=== PATIENT | male | born 1960 | race Caucasian/White ===

== ENCOUNTER 2021-06-26 06:32 | Day surgery (SDC) | payer MEDICARE, OTHER ==
[~2021-06-26] VITALS: Ht 177.8 cm; Wt 95.5 kg
[2021-06-26 07:00] VITALS: BP 175/107
[2021-06-26] MEDS ORDERED: normal saline 1000ml 1,000 ML IV PRN (07:00)
[2021-06-26] MEDS ORDERED: AMLO2.5T2 PO (07:15)
[2021-06-26] MEDS ORDERED: LISI20TA28 PO (07:15)
[2021-06-26] MEDS ORDERED: PANT-47 PO (07:15)
[2021-06-26] MEDS ORDERED: DOXA2TAB46 PO (07:15)
[2021-06-26] MEDS ORDERED: LEVO50TA PO (07:15)
[2021-06-26 07:29] LABS: BASOPHILS # (AUTO) 0.1 X10'3 (0-0.2); BASOPHILS % (AUTO) 1.3 % (0-1); EOSINOPHILS % (AUTO) 12.9 % (0-6); HEMATOCRIT 38.3 % (42.0-52.0); HEMOGLOBIN 13.2 g/dl (14.0-17.9); LYMPHOCYTES # (AUTO) 1.2 X10'3 (1.1-4.8); LYMPHOCYTES % (AUTO) 15.8 % (21-51); MEAN CORPUSCULAR HEMOGLOBIN 35.1 PG (27.0-31.0); MEAN CORPUSCULAR HGB CONC 34.4 g/dL (33.0-36.5); MEAN CORPUSCULAR VOLUME 101.9 FL (78-98); MEAN PLATELET VOLUME 8.4 FL (7.4-10.4); MONOCYTES # (AUTO) 0.7 X10'3 (0-0.9); MONOCYTES % (AUTO) 9.5 % (2-12); NEUTROPHILS # (AUTO) 4.5 X10'3 (1.8-7.7); NEUTROPHILS % (AUTO) 60.5 % (42-75); PLATELET COUNT 306 X10'3 (140-440); RED BLOOD COUNT 3.76 X10'6 (4.70-6.10); RED CELL DISTRIBUTION WIDTH 14.8 % (11.5-14.5); WHITE BLOOD COUNT 7.4 X10'3 (4.5-11.0)
[2021-06-26 07:37] LABS: ALBUMIN 4.6 G/DL (3.4-5.0); ANION GAP 14 (8-16); BLOOD UREA NITROGEN 36 MG/DL (7-18); BUN/CREATININE RATIO 5.1 (5.4-32.0); CALCIUM 9.9 MG/DL (8.5-10.1); CHLORIDE 98 MMOL/L (99-107); CREATININE 7.04 MG/DL (0.60-1.10); GLUCOSE 160 MG/DL (70-104); POTASSIUM 3.1 MMOL/L (3.5-5.1); SODIUM 142 MMOL/L (135-145); eGFR 8 ML/MIN
[2021-06-26] MEDS ORDERED: LIDOcaine 1%/PF 5ML 10 MG/ML VIAL ONE (08:32)
[2021-06-26] MEDS ORDERED: iohexol 300mg/ml 100ml inj. ONE (08:33)
[2021-06-26] MEDS ORDERED: fentaNYL/PF 50MCG/1 ML 2ML syringe ONE ×2 (08:33→08:36)
[2021-06-26] MEDS ORDERED: midazolam 1 mg/ML 2ml injection ONE ×2 (08:33→08:36)
[2021-06-26] MEDS ORDERED: heparin 1,000 UNITS/NS 500ml 500 ML ONE (08:33)
[2021-06-26] MEDS ORDERED: heparin 1,000unit/ml 10ml vial 10 ML ONE (09:21)
[2021-06-26] MEDS ORDERED: hydrALAZINE 20mg/ml inj. IV ONE (09:24)
[2021-06-26 09:50] VITALS: BP 170/92
[2021-06-26 10:05] VITALS: BP 157/102
[2021-06-26 10:20] VITALS: BP 176/92
[2021-06-26 10:35] VITALS: BP 169/94
[2021-06-26 10:50] VITALS: BP 176/97
== END 2021-06-26 11:00 | disposition home or self-care (01) ==
LOC: SSTAY O 06:32
PROVIDERS: ATTEND Radiology Vascular & Interventional Radiology
DX: T82.858A Stenosis of other vascular prosthetic devices, implants and grafts, initial encounter (principal); I12.0 Hypertensive chronic kidney disease with stage 5 chronic kidney disease or end stage renal disease; N18.6 End stage renal disease; E03.9 Hypothyroidism, unspecified; Z90.49 Acquired absence of other specified parts of digestive tract; Z98.890 Other specified postprocedural states; Z79.899 Other long term (current) drug therapy; Z79.01 Long term (current) use of anticoagulants; Y83.2 Surgical operation with anastomosis, bypass or graft as the cause of abnormal reaction of the patient, or of later complication, without mention of misadventure at the time of the procedure; Y92.89 Other specified places as the place of occurrence of the external cause
CPT/HCPCS: 36415; 36901; 36907; 80048; 85025; 85610; 99152; 99153; C1725; C1769; C1894; J0360; J1644; J2250; J3010; Q9967

== ENCOUNTER 2021-08-16 01:16 | Emergency (ER) | payer MEDICARE, OTHER ==
[~2021-08-16] VITALS: Ht 177.8 cm; Wt 86.4 kg
[~2021-08-16 01:16] MED LIST: AMLO2.5T2 PO; DOXA2TAB46 PO; LEVO50TA PO; LISI20TA28 PO; PANT-47 PO
[2021-08-16 01:23] VITALS: BP 186/113
[2021-08-16 02:19] LABS: ALANINE AMINOTRANSFERASE 17 U/L (12-78); ALBUMIN 3.9 G/DL (3.4-5.0); ALKALINE PHOSPHATASE 181 IU/L (46-116); ANION GAP 8 (8-16); ASPARTATE AMINO TRANSFERASE 21 U/L (10-37); BILIRUBIN,TOTAL 0.5 MG/DL (0.1-1.0); BLOOD UREA NITROGEN 32 MG/DL (7-18); BUN/CREATININE RATIO 5.1 (5.4-32.0); CALCIUM 9.8 MG/DL (8.5-10.1); CHLORIDE 99 MMOL/L (99-107); CREATININE 6.28 MG/DL (0.60-1.10); GLUCOSE 194 MG/DL (70-104); SODIUM 141 MMOL/L (135-145); TOTAL CARBON DIOXIDE 33.7 MMOL/L (24-32); TOTAL PROTEIN 7.7 G/DL (6.4-8.2); eGFR 9 ML/MIN
== END 2021-08-16 04:15 | disposition left against medical advice (07) ==
LOC: ER 01:16
DX: I21.4 Non-ST elevation (NSTEMI) myocardial infarction (principal); N18.6 End stage renal disease; I50.9 Heart failure, unspecified; I25.2 Old myocardial infarction; Z79.899 Other long term (current) drug therapy
CPT/HCPCS: 36415; 71045; 80053; 83880; 84484; 93005; 99285